=== PATIENT | female | born 1990 | race Caucasian/White ===

== ENCOUNTER 2019-08-18 23:45 | Emergency (ER) | payer MEDICAID ==
[~2019-08-18] VITALS: Ht 157.5 cm; Wt 86.0 kg
[2019-08-19 02:26] LABS: BASOPHILS % 0.6 % (0.0-2.0); EOSINOPHILS % 1.2 % (0.0-5.0); HEMATOCRIT. 39.1 % (36.0-48.0); HEMOGLOBIN. 13.3 g/dL (12.0-16.0); LYMPHOCYTES % 25.6 % (20.0-50.0); MEAN CORPUSCULAR HEMOGLOBIN 29.2 pg (28.0-32.0); MEAN CORPUSCULAR VOLUME 86.3 fL (81.0-99.0); MEAN PLATELET VOLUME 9.2 fl (7.4-10.4); MONOCYTES % 6.1 % (2.0-8.0); NEUTROPHILS % 66.5 % (40.0-76.0); PLATELET 324 x1000/uL (130-400); RED BLOOD CELL COUNT 4.53 mill/uL (4.2-5.4); RED CELL DISTRIBUTION WIDTH 12.8 % (11.6-14.6)
[2019-08-19 02:30] LABS: CHLORIDE 106 mEq/L (98-107)
[2019-08-19] MEDS ORDERED: FAMOTIDINE 20MG TABLET PO ONE (02:45)
[2019-08-19 03:57] VITALS: BP 121/67
== END 2019-08-19 04:06 | disposition home or self-care (01) ==
LOC: ER 23:45
DX: K21.9 Gastro-esophageal reflux disease without esophagitis (principal)
CPT/HCPCS: 36415; 71045; 83880; 84484; 99284